=== PATIENT | female | born 1990 | race Caucasian/White ===

== ENCOUNTER 2021-09-22 23:00 | Emergency (ER) | payer OTHER ==
--- NOTE | 2021-09-22 23:42 | CR ---
HISTORY: Cough and shortness of breath. COMPARISON: None available FINDINGS: A portable erect AP view of the chest was obtained at 23 28 hours. The lungs are clear. No focal or diffuse infiltrates are present. The heart is normal in size. The mediastinum is normal in appearance. The osseous structures are normal in appearance for the patient`s age. IMPRESSION: Normal portable chest single view. Dictated by Les Avalos MD @ 09/22/2021 11:40:57 PM (Electronically Signed)
[2021-09-22 23:54] LABS: CORONAVIRUS COVID-19 NAA NEGATIVE (NEGATIVE); INFLUENZA A NAA NEGATIVE (NEGATIVE); INFLUENZA B NAA NEGATIVE (NEGATIVE)
--- NOTE | 2021-09-23 00:14 | PCM.EKG ---
#1 Interpretation EKG Date: 09/23/21 Time: 00:04 Rhythm: NSR Rate (Beats/Min): 60 [place]: Normal P-Wave: Present QRS: Normal ST-T: Normal QT: Normal Comparison: NA - No Prior EKG EKG Interpretation Comments: Sinus Rhythm
--- NOTE | 2021-09-23 00:33 | EDM.PDOC ---
ED HPI GENERAL MEDICAL PROBLEM - General Chief Complaint: Respiratory Problem Stated Complaint: DIFFICULTY BREATHING Time Seen by Provider: 09/22/21 23:11 - History of Present Illness INITIAL COMMENTS - FREE TEXT/NARRATIVE: CHIEF COMPLAINT(S): "Issues breathing." HISTORY OF PRESENT ILLNESS: This is a 31-year-old woman without any significant past medical history who comes to the emergency department with a chief complaint of "issues breathing." The patient states that she is having issues breathing. She states that off and on for the last 4 days she has been experiencing sensation of shortness of breath. She states that this is normally worse when she is trying to fall asleep. Then she cannot fall asleep. She states that she has not had any cough, fever, lower extremity edema, recent travel or recent surgery. She states that she has not had any lower extremity edema and denies any history of DVT or PE. She denies any family history of clotting disorders. She states that this evening she came into the emergency department because she could just not calm down. She states that when she lies down she does have a stuffy nose but denies any congestion otherwise. She denies any sore throat, drooling, trismus or stridor. She denies any history of anxiety or panic attack. She denies any wood-burning stove or exposure to carbon monoxide. REVIEW OF SYSTEMS: Constitutional: Denies fever, chills. Eyes: Denies eye pain Ears, Nose, Mouth, & Throat: Denies earache Cardiovascular: Denies chest pain Respiratory: Positive for shortness of breath Gastrointestinal: Denies Nausea, vomiting, diarrhea, hematochezia. Genitourinary: Denies hematuria Skin:Denies a rash MSK: Denies joint pain Neurological: Denies blurred vision, numbness, tingling, weakness Psychiatric: Denies depression, anxiety PAST MEDICAL HISTORY: As per history of present illness and as reviewed below otherwise noncontributory. SURGICAL HISTORY: As per history of present illness and as reviewed below otherwise noncontributory. SOCIAL HISTORY: As per history of present illness and as reviewed below otherwise noncontributory. FAMILY HISTORY: As per history of present illness and as reviewed below otherwise noncontributory. EXAMINATION OF ORGAN SYSTEMS/BODY AREAS: Constitutional: Blood pressure is 124/84, heart rate 60, respiratory rate 18 with an oxygen saturation of 100% on room air. Temperature 36.1 General: Well-appearing woman who is in no acute distress Psychiatric: Appropriate mood and affect. Eyes: No scleral icterus or conjunctival erythema ENMT: Moist mucous membranes. No pharyngeal erythema Cardiovascular: Regular, rate, and rhythm. No gallops, murmurs, or rubs. Bilateral upper extremity pulses symmetric and intact. No peripheral edema. No JVD. Respiratory: Lungs clear to auscultation bilaterally. No wheezes, rales, or rhonchi. Gastrointestinal: Soft, non-tender, non-distended. Normoactive bowel sounds Genitourinary: No suprapubic tenderness Musculoskeletal: Normal range of motion. Skin: No lesions or abrasions. Neurological: Alert, GCS 15 MEDICAL DECISION MAKING AND COURSE IN THE ED WITH INTERPRETATION/REVIEW OF DIAGNOSTIC STUDIES: This is a 31-year-old woman without any significant past medical history who comes to the emergency department with dyspnea and sinus congestion who overall appears well with normal vital signs. At this time we will obtain a chest x-ray to evaluate for any pneumonia or abnormality, and EKG for screening purposes to evaluate for arrhythmia. Obtain a Covid, influenza and RSV swab. In addition it is the winter we will obtain a carboxyhemoglobin to evaluate for carbon monoxide poisoning. She was amenable to this plan. I do not believe any therapeutics are indicated as the patient appears well and is saturating appropriately without any respiratory distress. DDx: COVID-19 infection, influenza infection, anxiety, pneumonia, carbon monoxide poisoning Laboratory: Covid, influenza, RSV negative. Carboxyhemoglobin is normal. The radiological images were viewed by myself along with reading the report from the radiologist. X-ray does not reveal an acute cardiopulmonary process. On reevaluation I did discuss the results with the patient. At this time patient's vitals continue to stay normal. There could be a degree of anxiety however I did discuss strict return precautions with the patient. She was amenable discharge and had no further questions DISPOSITION: The patient was discharged home in stable condition. The patient will follow up with primary care physician in [place] when she returns after work CONDITION: Good PROCEDURES: None FINAL IMPRESSION(S)/DIAGNOSES: 1. Acute dyspnea Ho Cast M.D. - Related Data Allergies Allergy/AdvReac Type Severity Reaction Status Date / Time Penicillins Allergy Vomiting Verified 09/22/21 23:10 Home Meds: Home Meds . [No Known Home Meds] 09/22/21 [History] Past Medical History - Past Health History Medical/Surgical History: Denies Medical/Surgical History Social & Family History - Tobacco Use Tobacco Use Status *Q: Never Tobacco User Second Hand Smoke Exposure: No - Recreational Drug Use Recreational Drug Use: No ED ROS GENERAL - Review of Systems Review Of Systems: See Below ED EXAM, GENERAL - Physical Exam Exam: See Below Course - Vital Signs Last Recorded V/S: Last Vital Signs Temp 36.1 C 09/22/21 23:05 Pulse 60 09/22/21 23:05 Resp 18 09/22/21 23:05 BP 125/84 09/22/21 23:05 Pulse Ox 100 09/22/21 23:05 - Orders/Labs/Meds Labs: Laboratory Tests 09/22/21 09/23/21 Range/Units 23:12 00:15 ABG Carboxyhemoglobin 1.9 (0-15) % Influenza Type A RNA NEGATIVE (NEGATIVE) Influenza Type B RNA NEGATIVE (NEGATIVE) SARS-CoV-2 RNA (BRISA) NEGATIVE (NEGATIVE) Departure - Departure Time of Disposition: 00:34 Disposition: Home, Self-Care 01 Condition: Fair Clinical Impression: Dyspnea - Discharge Information *PRESCRIPTION DRUG MONITORING PROGRAM REVIEWED*: No *COPY OF PRESCRIPTION DRUG MONITORING REPORT IN PATIENT CHARU: No Instructions: Shortness of Breath, Adult, [id number], Panic Attack, [id number], Managing Anxiety, Adult Referrals: PCP,None [Primary Care Provider] - Forms: ED Department Discharge Additional Instructions: You were evaluated today on an emergent basis. At this time it is uncertain as to what is causing your shortness of breath as your x-ray, the rhythm strip of your heart, viral screening and carbon monoxide screening were all negative. I recommend he follow-up with your primary care physician in 3-5. You are welcome to return to the emergency department if you have any worsening symptoms such as chest pain, shortness of breath or you feel you are not improving. [facility] - Primary Care [address] [place] [id number] [address] The patient is informed of any results of their evaluation and diagnostic workup and all questions are answered. They are given discharge instructions and return precautions. The patient is stable for discharge. The patient states they understand and agree with the plan and that they will return if their symptoms get worse or if they have any new concerns. The following information is given to patients seen in the emergency department who are being discharged to home. This information is to outline your options for follow-up care. We provide all patients seen in our emergency department with a follow-up referral. The need for follow-up, as well as the timing and circumstances, are variable depending upon the specifics of your emergency department visit. If you don't have a primary care physician on staff, we will provide you with a referral. We always advise you to contact your personal physician following an emergency department visit to inform them of the circumstance of the visit and for follow-up with them and/or the need for any referrals to a consulting specialist. The emergency department will also refer you to a specialist when appropriate. This referral assures that you have the opportunity for follow-up care with a specialist. All of these measure are taken in an effort to provide you with optimal care, which includes your follow-up. Under all circumstances we always encourage you to contact your private physician who remains a resource for coordinating your care. When calling for follow-up care, please make the office aware that this follow-up is from your recent emergency room visit. If for any reason you are refused follow-up, please contact the [facility] Emergency Department at and asked to speak to the emergency department charge nurse. Sepsis Event Note (ED) - Evaluation Sepsis Screening Result: No Definite Risk - Focused Exam Vital Signs: Vital Signs Temp Pulse Resp BP Pulse Ox 09/22/21 23:05 36.1 C 60 18 125/84 100
== END 2021-09-23 00:45 | disposition home or self-care (01) ==
LOC: MW.ED 23:00
DX: R06.02 Shortness of breath (principal); Z88.0 Allergy status to penicillin; Z20.822 Contact with and (suspected) exposure to COVID-19
CPT/HCPCS: 0240U; 71045; 82375; 93005; 99285